=== PATIENT | male | born 1985 | race African-American/Black ===

== ENCOUNTER 2017-12-20 14:23 | Emergency (ER) | payer SELFPAY ==
[~2017-12-20] VITALS: Ht 170.2 cm; Wt 72.6 kg
[2017-12-20 14:45] VITALS: BP 121/55
[2017-12-20] MEDS ORDERED: Norco 5mg/325mg tab ORAL ONE (15:15)
--- NOTE | 2017-12-20 15:35 | Emergency Room Report ---
History of Present Illness General Chief Complaint: Shoulder Injury Source: Patient Present Illness HPI 32-year-old male presents to the emergency department complaining of 10 out of 10 in severity localized pain to the left shoulder status post fall 2 days ago. Patient reports pain with attempts to abduct the left arm. Denies numbness tingling or loss of sensation or gross motor movements of the extremities, incontinence of bowel or bladder. Denies CP, Palpitations, LOC, AMS, dizziness, Changes in Vision, weakness or a sudden severe headache. Allergies: Coded Allergies: No Known Allergies (Unverified , 12/20/17) Patient History Past Medical History: see triage record Past Surgical History: none Pertinent Family History: none Reviewed Nursing Documentation: PMH: Agreed; PSxH: Agreed Nursing Documentation-PMH Past Medical History: No Stated History Review of Systems All Other Systems: negative except mentioned in HPI Physical Exam Vital Signs Date Time Temp Pulse Resp B/P (MAP) Pulse Ox O2 Delivery O2 Flow Rate FiO2 12/20/17 14:30 98.1 56 18 121/55 100 Room Air 98.1 Sp02 EP Interpretation: reviewed, normal General Appearance: no apparent distress, alert, GCS 15, non-toxic Head: normocephalic, atraumatic Eyes: bilateral eye normal inspection, bilateral eye PERRL ENT: normal voice Neck: full range of motion Respiratory: normal breath sounds, speaking full sentences Cardiovascular #1: regular rate, rhythm, normal capillary refill Cardiovascular #2: 2+ radial (R), 2+ radial (L) Musculoskeletal: back normal, gait/station normal, normal range of motion - pain aggrivated at the 60* , other - step off of the left a/c , , tender Neurologic: alert, oriented x3, responsive, motor strength/tone normal, sensory intact, normal gait, speech normal, grossly normal Psychiatric: judgement/insight normal Skin: normal color, no rash, warm/dry, well hydrated Medical Decision Making PA Attestation Dr. Andino is my supervising Physician whom patient management has been discussed with. Diagnostic Impression: Primary Impression: Shoulder injury Qualified Codes: S49.92XA - Unspecified injury of left shoulder and upper arm , initial encounter Additional Impressions: Acromioclavicular (joint) (ligament) sprain Acromioclavicular joint separation, type 1 Qualified Codes: S43.102A - Unspecified dislocation of left acromioclavicular joint, initial encounter ER Course 32-year-old male presents to the emergency department complaining of 10 out of 10 in severity localized pain to the left shoulder status post fall 2 days ago. Patient reports pain with attempts to abduct the left arm. Denies numbness tingling or loss of sensation or gross motor movements of the extremities, incontinence of bowel or bladder. Denies CP, Palpitations, LOC, AMS, dizziness, Changes in Vision, weakness or a sudden severe headache. Ddx considered but are not limited to Fracture, dislocation, contusion, Sprain/ Strain/Spasm, Epidural abscess, Neoplastic mets. Vital signs: are WNL, pt. is afebrile H&PE are most consistent with musculoskeletal injury will perform imaging to r/ o fractures/dislocations. ORDERS: - X-ray Left Shoulder 3 - negative for fx, Dislocation, or significant soft tissue injury, possible A/C separation per preliminary read in ED, and signed by KIKI Lugo, my supervising physician has reviewed, and agrees with my interpretation. ED INTERVENTIONS: - Left arm Sling applied by technical laboratory asst. Pt. remains neurovascularly intact. DISCHARGE: At this time pt. is stable for d/c to home. Will provide printed patient care instructions, and any necessary prescriptions. Care plan and follow up instructions have been discussed with the patient prior to discharge. Other X-Ray Diagnostic Results Other X-Ray Diagnostic Results : X-Ray ordered: Left SHoulder # of Views/Limited Vs Complete: 3 View Indication: Pain EP Interpretation: Yes PA Xray: Interpretation reviewed, by supervising MD Interpretation: no dislocation, no soft tissue swelling, no fractures, other - grade 1 A/C separation Impression: Other - abnormal Electronically Signed by: Lydia Lugo PA-C Last Vital Signs Date Time Temp Pulse Resp B/P (MAP) Pulse Ox O2 Delivery O2 Flow Rate FiO2 12/20/17 15:22 98.1 12/20/17 14:30 56 18 121/55 100 Room Air Disposition: HOME, SELF-CARE Condition: Stable Scripts Diclofenac Sodium (VOLTAREN) 100 Gm Gel..gram. 1 APPLIC TP BID, #1 GM Prov: Lydia Lugo 12/20/17 Ibuprofen* (MOTRIN*) 600 Mg Tablet 600 MG ORAL THREE TIMES A DAY, #30 TAB 0 Refills Prov: Lydia Lugo 12/20/17 Referrals: NOT CHOSEN IPA/,REFERRING (PCP) Patient Instructions: Shoulder Separation, Shoulder Sprain Additional Instructions: Take medications as directed. Follow up with your primary care provider or an COLUMNIST/COMMENTATOR in 3- 5 days, even if your symptoms have resolved. If symptoms persist MRI may be required at the discretion of your PCP or Ortho Specialist. --Please review list of primary care clinics, if you do not already have a primary care provider who can give you an Orthopedic Referral. Return sooner to ED if new symptoms occur, or current symptoms become worse. - Please note that this Emergency Department Report was dictated using [employer] trading analyst technology software, occasionally this can lead to erroneous entry secondary to interpretation by the dictation equipment. Lydia Lugo Dec 20, 2017 15:35
[2017-12-20] MEDS ORDERED: IBUPROFEN600 MG ORAL (15:36)
[2017-12-20] MEDS ORDERED: VOLTAREN100 G1 TP (15:36)
[2017-12-20 15:41] VITALS: BP 121/55
--- NOTE | 2017-12-20 15:49 | Diagnostic Imaging Report ---
Indication: left shoulder pain Findings: 3 views of the left shoulder were obtained. Alignment of the left shoulder is normal. No acute fracture is identified. Soft tissues are unremarkable. Impression: No acute injury
== END 2017-12-20 15:41 | disposition home or self-care (01) ==
LOC: EMR 15:18
DX: S43.52XA Sprain of left acromioclavicular joint, initial encounter (principal); V00.131A Fall from skateboard, initial encounter; Y93.89 Activity, other specified
CPT/HCPCS: 99283